=== PATIENT | male | born 1955 | race Caucasian/White ===

== ENCOUNTER 2021-04-05 12:00 | Outpatient (CLI) | payer OTHER, SELFPAY | END 2021-04-05 12:01 | disposition home or self-care (01) | LOC: SLEEP 04-06 15:29 | PROVIDERS: Family Provider Family Medicine; Visit Provider Family Medicine | DX: R20.9 Unspecified disturbances of skin sensation (principal); M65.30 Trigger finger, unspecified finger; R53.83 Other fatigue; R40.0 Somnolence; R60.9 Edema, unspecified; R05 Cough | CPT/HCPCS: G0399 ==

== ENCOUNTER 2021-07-26 11:14 | Emergency (ER) | payer OTHER, SELFPAY ==
[2021-07-26 11:27] VITALS: BP 142/92; PULSE 75; RESP 18; TEMP 37.1; O2SAT 94; BMI 38.5
[2021-07-26 13:05] LABS: Basophils # 0.1 10^3/uL (0.0-0.1); Basophils % 0.7 %; Eosinophils # 0.1 10^3/uL (0.0-0.8); Eosinophils % 1.6 %; Hematocrit 53.7 % (42.0-52.0); Hemoglobin 17.3 g/dL (11.7-16.6); Lymphocytes % 21.8 %; Mean Corpuscular HGB Conc 32.2 g/dL (30.0-36.0); Mean Corpuscular Hemoglobin 29.9 pg (28.0-34.0); Mean Corpuscular Volume 92.9 fl (80-94); Mean Platelet Volume 11.1 fL (7.4-10.4); Monocytes # 0.8 10^3/uL (0.2-0.9); Monocytes % 8.8 %; Neutrophils % 66.8 %; Nucleated Red Blood Cells % 0 %; Platelet Count 183 10^3/cmm (130-400); Red Blood Count 5.78 10^6/uL (4.1-5.3); Red Cell Distribution Width 13.3 % (12.1-15.1)
[2021-07-26 13:24] LABS: Blood Urea Nitrogen 14 mg/dL (8-23); Calcium 8.1 mg/dL (8.5-10.5); Carbon Dioxide 24 mmol/L (22-29); Chloride 102 mmol/L (98-107); Creatinine Clr Calc Pharmacy 120.0824; Glomerular Filtration Rate 84.7 mL/min (90-130); Glucose 91 mg/dL (65-115); Osmolality Calculated 282 mOsm/kg (285-295); Sodium 136 mmol/L (136-145)
[2021-07-26 13:25] LABS: Anion Gap 14.4 (5-19); Potassium 4.4 mmol/L (3.5-5.1)
[2021-07-26 13:31] LABS: INR 0.98 (0.8-1.2)
--- NOTE | 2021-07-26 13:57 | ED_ITS ---
Documented by User: ROSALIO Martinez 07/26/21 15:52 HPI - General Adult General: Chief complaint: General Medical Stated complaint: Rectal Bleeding Time Seen by Provider: 07/26/21 17:40 History of Present Illness: HPI narrative: Patient said he had rectal bleeding that started last night. Notes when he wiped. Has had some dripping from his rectum this morning and blood on toilet paper. Patient denies any history of abdominal problems or any history of hemorrhoids. MD complaint: Rectal bleeding Onset (ago): hour(s) Associated symptoms: Reports no associated symptoms; Deny chest pain, headache(s), rash or vomiting Review of Systems Const: Denies: fever(s), chills or body aches Eyes: Denies: eye discharge ENMT: Denies: throat pain, oral sores or nasal congestion Card: Denies: chest pain or dyspnea on exertion Resp: Denies: wheezing or stridor GI: Reports: other (Rectal bleeding); Denies: vomiting, diarrhea, rectal pain, rectal swelling or rectal itching : Denies: difficulty urinating Musc: Denies: extremity pain Skin/Breast: Denies: rash Neuro: Denies: headache(s) Psych: Denies: anxiety or depression Jeffrey/Lymph: Denies: easy bruising PFSH ED PFSH: Medical History (Updated 07/27/21 @ 07:02 by Vu Lindquist DO) No significant past medical history Surgical History (Updated 07/27/21 @ 07:02 by Vu Lindquist DO) No history of previous surgery Social History (Updated 07/27/21 @ 07:03 by Vu Lindquist DO) Smoking and tobacco status: never smoked Alcohol intake: never Physical Exam Const: COMMON NORMALS: no acute distress GENERAL APPEARANCE: cooperative Resp: COMMON NORMALS: normal respiratory effort Psych: COMMON NORMALS: mental status grossly normal Course Vital Signs: Vital signs: Vital Signs Temperature 98.7 F 07/26/21 11:27 Pulse Rate 71 07/26/21 18:24 Respiratory Rate 17 07/26/21 18:24 Blood Pressure 142/92 07/26/21 11:27 Pulse Oximetry 95 07/26/21 18:24 MDM - General Adult MDM Narrative: Medical decision making narrative: Brief history and physical exam was performed as part of the triage process. Due to current ED wait time patient will be placed in waiting room until a room becomes available. Explained to patient he/she will be seen in order of severity. Patient is currently safe to wait in the waiting room until we can get them placed. Patient informed that if condition worsens at any time to please let the front desk coordinator know. I have visited with the patient hourly over the last 3 hours Lab Data: Labs: Lab Results 07/26/21 07/26/21 07/26/21 12:56 12:56 12:56 WBC 9.0 10^3/uL 10^3/ uL (4.0-10.0) RBC 5.78 10^6/uL H 10 ^6/uL (4.1-5.3) Hgb 17.3 g/dL H g/dL (11.7-16.6) Hct 53.7 % H % (42.0-52.0) MCV 92.9 fl fl (80-94) MCH 29.9 pg pg (28.0-34.0) MCHC 32.2 g/dL g/dL (30.0-36.0) RDW 13.3 % % (12.1-15.1) Plt Count 183 10^3/cmm 10^3 /cmm (130-400) MPV 11.1 fL H fL (7.4-10.4) Neut % (Auto) 66.8 % % Lymph % (Auto) 21.8 % % [place] % (Auto) 8.8 % % Eos % (Auto) 1.6 % % Baso % (Auto) 0.7 % % Neut # (Auto) 6.00 10^3/uL 10^3 /uL (1.8-7.7) Lymph # (Auto) 2.0 10^3/uL 10^3/ uL (0.8-4.8) [place] # (Auto) 0.8 10^3/uL 10^3/ uL (0.2-0.9) Eos # (Auto) 0.1 10^3/uL 10^3/ uL (0.0-0.8) Baso # (Auto) 0.1 10^3/uL 10^3/ uL (0.0-0.1) Nucleated RBC % (a uto) 0 % % Nucleated RBCs # 0.0 /100WBC /100W BC PT 13.30 SECONDS SEC ONDS (12.1-14.9) INR 0.98 (0.8-1.2) Sodium 136 mmol/L mmol/L (136-145) Potassium 4.4 mmol/L mmol/L (3.5-5.1) Chloride 102 mmol/L mmol/L (98-107) Carbon Dioxide 24 mmol/L mmol/L (22-29) Anion Gap 14.4 (5-19) BUN 14 mg/dL mg/dL (8-23) Creatinine 0.9 mg/dL mg/dL (0.7-1.2) GFR Calculation 84.7 mL/min L mL/ min (90-130) Glucose 91 mg/dL mg/dL (65-115) Calculated Osmolal ity 282 mOsm/kg L mOs m/kg (285-295) Calcium 8.1 mg/dL L mg/dL (8.5-10.5) Discharge Plan Discharge Patient Disposition: Home Clinical Impression: Bleeding hemorrhoids Condition: Stable Prescriptions: New Anusol-HC 2.5 % cream with perineal applicator 1 applic OK QID 21 Days RF: 0 Discharge Orders: Discharge ED (Routine); Ordered 07/26/21 Ordered By: Vu Lindquist Discharge Diet: Usual diet Discharge Activity: Resume usual activity Patient Instructions: Opioid Safety Activity Restrictions/Additional Instructions: Follow-up with hemoglobin with your primary care doctor in the next 2 days. If you have further problems return to the emergency room. canteen manager will call to make arrangements for you to see a general surgeon to have a colonoscopy done. Coding Level of Care Code ED [employer] Director for Chg Fwd Exam Expanded Problem Focused Documented by User: Vu Lindquist DO 07/27/21 07:04 HPI - General Adult General: Chief complaint: General Medical Stated complaint: Rectal Bleeding Time Seen by Provider: 07/26/21 17:40 History of Present Illness: HPI narrative: 66-year-old male presents emergency room with complaint of bright red blood per rectum. Single episode last night large amount of red blood is not had any further episodes. He is not had any straining to defecate. He has had never had problems with hemorrhoids in the past. Associated symptoms: Deny chest pain, dyspnea, malaise, nausea, rash or vomiting Review of Systems Const: Denies: fever(s), chills, body aches, change in appetite, fatigue or malaise Card: Denies: chest pain, edema, dyspnea on exertion or orthopnea Resp: Denies: dyspnea, productive cough or non-productive cough GI: Reports: hematochezia; Denies: abdominal pain, nausea, vomiting, hematemesis, coffee ground emesis, diarrhea, constipation, bloating, rectal pain or melena : Denies: flank pain, dysuria, urinary frequency or urinary urgency Skin/Breast: Denies: rash or pruritus PFSH ED PFSH: Medical History (Updated 07/27/21 @ 07:02 by Vu Lindquist DO) No significant past medical history Surgical History (Updated 07/27/21 @ 07:02 by Vu Lindquist DO) No history of previous surgery Social History (Updated 07/27/21 @ 07:03 by Vu Lindquist DO) Smoking and tobacco status: never smoked Alcohol intake: never Physical Exam Const: COMMON NORMALS: no acute distress GENERAL APPEARANCE: cooperative and comfortable ORIENTATION/CONSCIOUSNESS: Yes awake, Yes oriented to person, Yes oriented to place and Yes oriented to time HENMT: COMMON NORMALS: normocephalic, atraumatic and hearing grossly normal bilaterally HEAD & SCALP: normocephalic and atraumatic Neck/C-Spine: COMMON NORMALS: no JVD Resp: COMMON NORMALS: normal respiratory effort, No retractions, No use of accessory muscles and clear to auscultation bilaterally AUSCULTATION: clear to auscultation bilaterally Cardio: COMMON NORMALS: no JVD, regular rate, regular rhythm and No murmurs present (Cardio) RATE: regular rate RHYTHM: regular rhythm GI: COMMON NORMALS: Soft to palpation and No hepatosplenomegaly present AUSCULTATION: Yes normoactive bowel sounds PALPATION: Yes Soft to palpation, No Tenderness to palpation present (GI), No Guarding due to palpation present (GI) and Yes No hepatosplenomegaly present OTHER: Rectal exam bleeding external hemorrhoid at the 6 o'clock position. No active bleeding nonthrombosed hemorrhoids Extremity: COMMON NORMALS: normal to inspection, capillary refill normal, no clubbing, cyanosis or edema, no calf tenderness and no pedal edema Neuro: SENSORIUM/ORIENTATION: Yes oriented to person, Yes oriented to place and Yes oriented to time Skin: COMMON NORMALS: no rashes or lesions noted GENERAL SKIN EXAM: no rashes or lesions noted Course Vital Signs: Vital signs: Vital Signs Temperature 98.7 F 07/26/21 11:27 Pulse Rate 71 07/26/21 18:24 Respiratory Rate 17 07/26/21 18:24 Blood Pressure 142/92 07/26/21 11:27 Pulse Oximetry 95 07/26/21 18:24 MDM - General Adult MDM Narrative: Medical decision making narrative: Bleeding hemorrhoids. Not have active bleeding at this time the visualized nonthrombosed. Will discharge home with topical treatment referral to general surgery for further evaluation including possible colonoscopy since patient not had one previously. Lab Data: Labs: Lab Results 07/26/21 07/26/21 07/26/21 12:56 12:56 12:56 WBC 9.0 10^3/uL 10^3/ uL (4.0-10.0) RBC 5.78 10^6/uL H 10 ^6/uL (4.1-5.3) Hgb 17.3 g/dL H g/dL (11.7-16.6) Hct 53.7 % H % (42.0-52.0) MCV 92.9 fl fl (80-94) MCH 29.9 pg pg (28.0-34.0) MCHC 32.2 g/dL g/dL (30.0-36.0) RDW 13.3 % % (12.1-15.1) Plt Count 183 10^3/cmm 10^3 /cmm (130-400) MPV 11.1 fL H fL (7.4-10.4) Neut % (Auto) 66.8 % % Lymph % (Auto) 21.8 % % [place] % (Auto) 8.8 % % Eos % (Auto) 1.6 % % Baso % (Auto) 0.7 % % Neut # (Auto) 6.00 10^3/uL 10^3 /uL (1.8-7.7) Lymph # (Auto) 2.0 10^3/uL 10^3/ uL (0.8-4.8) [place] # (Auto) 0.8 10^3/uL 10^3/ uL (0.2-0.9) Eos # (Auto) 0.1 10^3/uL 10^3/ uL (0.0-0.8) Baso # (Auto) 0.1 10^3/uL 10^3/ uL (0.0-0.1) Nucleated RBC % (a uto) 0 % % Nucleated RBCs # 0.0 /100WBC /100W BC PT 13.30 SECONDS SEC ONDS (12.1-14.9) INR 0.98 (0.8-1.2) Sodium 136 mmol/L mmol/L (136-145) Potassium 4.4 mmol/L mmol/L (3.5-5.1) Chloride 102 mmol/L mmol/L (98-107) Carbon Dioxide 24 mmol/L mmol/L (22-29) Anion Gap 14.4 (5-19) BUN 14 mg/dL mg/dL (8-23) Creatinine 0.9 mg/dL mg/dL (0.7-1.2) GFR Calculation 84.7 mL/min L mL/ min (90-130) Glucose 91 mg/dL mg/dL (65-115) Calculated Osmolal ity 282 mOsm/kg L mOs m/kg (285-295) Calcium 8.1 mg/dL L mg/dL (8.5-10.5) Discharge Plan Discharge Patient Disposition: Home Clinical Impression: Bleeding hemorrhoids Condition: Stable Prescriptions: New Anusol-HC 2.5 % cream with perineal applicator 1 applic OK QID 21 Days RF: 0 Discharge Orders: Discharge ED (Routine); Ordered 07/26/21 Ordered By: Vu Lindquist Discharge Diet: Usual diet Discharge Activity: Resume usual activity Patient Instructions: Opioid Safety Activity Restrictions/Additional Instructions: Follow-up with hemoglobin with your primary care doctor in the next 2 days. If you have further problems return to the emergency room. canteen manager will call to make arrangements for you to see a general surgeon to have a colonoscopy done. Coding Level of Care Code ED [employer] Director for Chg Fwd Exam Expanded Problem Focused
[2021-07-26 18:24] VITALS: PULSE 71; RESP 17; O2SAT 95
--- NOTE | 2021-07-27 10:58 | DCPLANNER ---
sports team manager had message to schedule a follow up appointment for patient with general surgery. sports team manager emailed patients information to Erendira at [facility] General Surgery / ENT clinic. Patients information will be printed and reviewed. Clinic will call patient with appointment information.
--- NOTE | 2021-08-01 16:03 | DCPLANNER ---
Patient has a follow up appointment scheduled for Saturday, August 14, 2021 at 10:[address] Flores at [facility] General Surgery. Clinic will call patient with appointment information.
--- NOTE | 2021-08-22 08:24 | DCPLANNER ---
Patient had a follow up appointment scheduled for 08.14.[address] Flores at [facility] General Surgery - patient did attend appointment.
== END 2021-07-26 18:21 | disposition home or self-care (01) ==
PROVIDERS: Nurse Practitioner Family; Emergency Provider Family Medicine
DX: K64.9 Unspecified hemorrhoids (principal)
CPT/HCPCS: 80048; 85025; 85610; 99282

== ENCOUNTER 2022-07-04 12:50 | Outpatient (CLI) | payer OTHER, SELFPAY ==
--- NOTE | 2022-07-04 13:06 | XRR_ITS ---
PROCEDURE INFORMATION: Exam: XR Chest Exam date and time: 07/04/2022 1:12 PM Age: 67 years old Clinical indication: Patient HX: Persistant cough x 8 wks. PT stated that he did not have this cough until after the flu shot; Additional info: Persistent cough TECHNIQUE: Imaging protocol: Radiologic exam of the chest. Views: 2 views. COMPARISON: CT chest abd pel w con* 04/09/2017 9:50 PM FINDINGS: Lungs: Unremarkable. No consolidation. Pleural spaces: Unremarkable. No pleural effusion. No pneumothorax. Heart/Mediastinum: Unremarkable. No cardiomegaly. Bones/joints: Unremarkable. XR/XR chest 2V* [id number] IMPRESSION: No acute findings.
== END 2022-07-04 12:51 | disposition home or self-care (01) ==
LOC: RAD 12:55
PROVIDERS: PCP Family Medicine; Visit Provider Nurse Practitioner Family
DX: R05.3 Chronic cough (principal)
CPT/HCPCS: 71046

== ENCOUNTER 2022-07-24 14:56 | Outpatient (CLI) | payer OTHER, SELFPAY ==
--- NOTE | 2022-07-24 15:13 | XR_ITS ---
WS: [id number] Exam: XR chest 2V* [id number] Date/Time of Exam: 07/24/2022 3:13 PM Reason For Exam: prolonged cough Comparison 07/04/2022. The lungs are clear and fully expanded. Normal cardiomediastinal silhouette. Mild spondylosis of the thoracic spine. XR/XR chest 2V* [id number] IMPRESSION: 1. No acute cardiopulmonary finding. No change.
== END 2022-07-24 14:57 | disposition home or self-care (01) ==
LOC: RAD 14:57
PROVIDERS: PCP Family Medicine; Visit Provider Family Medicine
DX: J15.9 Unspecified bacterial pneumonia (principal); R05.9 Cough, unspecified
CPT/HCPCS: 71046; 80053; 85025; 86140

== ENCOUNTER 2022-10-02 09:07 | Outpatient (CLI) | payer OTHER, SELFPAY ==
--- NOTE | 2022-10-02 09:30 | CT_ITS ---
WS: [id number] CT CHEST WITHOUT INTRAVENOUS CONTRAST HISTORY: cough for 3 months TECHNIQUE: Contiguous 5 mm axial imaging performed on the thorax. Coronal and sagittal reformats are submitted. All CT scans at [facility] use at least one of these dose optimization techniques: automated exposure control; mA and/or kV adjustment per patient size (includes targeted exams where dose is matched to clinical indication); or iterative reconstruction. CONTRAST: None DLP: 707.01 mGy.cm COMPARISON: 04/09/2017 Lungs and central airway: Mild pulmonary hyperexpansion. No pulmonary mass, nodule or pneumonia. Lung s are clear. Pleura: Normal. No pleural effusion. Heart and pericardium: Normal size heart with no pericardial effusion. Mediastinum and mo: No mediastinum or hilar adenopathy. Vessels: Normal size aortic and pulmonary artery. No coronary artery calcifications. Chest wall and lower neck: No soft tissue masses. Upper abdomen: Numerous stones within the gallbladder. No evidence for acute cholecystitis. No adrena l mass. Osseous structures: Moderate degenerative osteoarthritic changes at the glenohumeral joints. CT/CT chest con [id number] IMPRESSION: 1. No pneumonia, pulmonary mass or nodule. 2. No adenopathy. 3. Normal size heart. 4. Cholelithiasis. Numerous stones within the gallbladder lumen. Stones have i ncreased in size and number since 2017. Consider surgical consultation.
== END 2022-10-02 09:08 | disposition home or self-care (01) ==
PROVIDERS: PCP Family Medicine; Visit Provider Clinical Nurse Specialist Adult Health
DX: R05.2 Subacute cough (principal)
CPT/HCPCS: 71250

== ENCOUNTER → 2022-10-05 12:03 | Outpatient (BNVA) | payer OTHER, MEDICARE, SELFPAY | PROVIDERS: PCP Family Medicine; Visit Provider Family Medicine | DX: Z12.5 Encounter for screening for malignant neoplasm of prostate (principal); Z80.42 Family history of malignant neoplasm of prostate | CPT/HCPCS: 84153 ==

== ENCOUNTER → 2023-11-22 09:01 | Outpatient (BNVA) | payer MEDICARE, SELFPAY | PROVIDERS: PCP Family Medicine; Visit Provider Family Medicine | DX: I87.2 Venous insufficiency (chronic) (peripheral) (principal); K80.20 Calculus of gallbladder without cholecystitis without obstruction; B35.3 Tinea pedis; R60.9 Edema, unspecified; Z00.00 Encounter for general adult medical examination without abnormal findings; Z13.6 Encounter for screening for cardiovascular disorders; G62.9 Polyneuropathy, unspecified; N52.9 Male erectile dysfunction, unspecified | CPT/HCPCS: 80053; 80061; 82607; 83036; 85025 ==

== ENCOUNTER 2024-05-12 15:12 | Outpatient (CLI) | payer MEDICARE, SELFPAY ==
--- NOTE | 2024-05-12 15:16 | XR_ITS ---
WS: [id number] XR knee LT 3V* [id number] REASON FOR EXAM: M25.569 - Pain in unspecified knee FINDINGS: No fracture or focal bone lesion. Severe narrowing of the medial knee joint space with moderate subchondral sclerosis and large margina l osteophytosis. Mild medial shift of the femur. Mild narrowing of the patellofemoral joint space wit h moderate subchondral sclerosis and mild marginal osteophytosis. Moderate opposing osteophytes of th e femoral condyles. XR/XR knee LT 3V* [id number] IMPRESSION: Moderately severe osteoarthritis of the left knee with near [id number] articu lation in the medial knee joint compartment.
--- NOTE | 2024-05-12 15:16 | XR_ITS ---
WS: [id number] [place] [id number] REASON FOR EXAM: M25.569 - Pain in unspecified knee FINDINGS: RIGHT KNEE: No fracture or focal bone lesion. Moderate narrowing of the medial knee joint space with moderate subchondral sclerosis and mild margin al osteophytosis. Mild medial shift of the femur. Lateral joint space is intact and relatively well preserved. XR/[place] [id number] IMPRESSION: Moderate osteoarthritis of the right knee. LEFT KNEE: No fracture or focal bone lesion. Severe narrowing of the medial knee joint spa ce which with weightbearing appears to be [id number] with moderate medial curly ft of the patella and significant subchondral sclerosis and cystic change. The lateral knee joint space is intact with minimal subchondral sclerosis and m ild marginal osteophytosis. IMPRESSION: Severe osteoarthritis of the left knee as above.
== END 2024-05-12 15:13 | disposition home or self-care (01) ==
LOC: RAD 15:13
PROVIDERS: PCP Family Medicine; Visit Provider Family Medicine
DX: M17.12 Unilateral primary osteoarthritis, left knee (principal); M25.762 Osteophyte, left knee; R35.0 Frequency of micturition
CPT/HCPCS: 73562; 73565; 81000

== ENCOUNTER → 2024-06-17 08:27 | Outpatient (BNVA) | payer MEDICARE, SELFPAY | PROVIDERS: PCP Family Medicine; Visit Provider Specialist | DX: M17.0 Bilateral primary osteoarthritis of knee (principal) | CPT/HCPCS: 73560; 73565; 99204 ==

== ENCOUNTER 2024-06-25 09:36 | Outpatient (RCR) | payer MEDICARE, SELFPAY | END 2024-07-04 23:59 | disposition home or self-care (01) | LOC: SPT 09:36 | PROVIDERS: Visit Provider Specialist | DX: M17.0 Bilateral primary osteoarthritis of knee (principal) | CPT/HCPCS: 97161 ==

== ENCOUNTER 2024-07-05 06:00 | Outpatient (RCR) | payer MEDICARE, SELFPAY | END 2024-08-04 23:59 | disposition home or self-care (01) | LOC: SPT 06:00 | PROVIDERS: Visit Provider Specialist | DX: M17.0 Bilateral primary osteoarthritis of knee (principal) | CPT/HCPCS: 97110 ==

== ENCOUNTER → 2024-10-12 13:19 | Outpatient (BNVA) | payer MEDICARE, SELFPAY | PROVIDERS: Visit Provider Specialist | DX: M17.0 Bilateral primary osteoarthritis of knee (principal) | CPT/HCPCS: 99213 ==

== ENCOUNTER → 2024-10-15 09:20 | Outpatient (BNVA) | payer MEDICARE, SELFPAY | PROVIDERS: PCP Family Medicine; Visit Provider Family Medicine | DX: I87.2 Venous insufficiency (chronic) (peripheral) (principal); E66.9 Obesity, unspecified; M19.90 Unspecified osteoarthritis, unspecified site; M25.569 Pain in unspecified knee; K80.20 Calculus of gallbladder without cholecystitis without obstruction; E03.9 Hypothyroidism, unspecified; E55.9 Vitamin D deficiency, unspecified | CPT/HCPCS: 80053; 80061; 82306; 83036; 83735; 84439; 84443; 84481; 85025; 85651; 86140 ==

== ENCOUNTER 2024-11-05 13:23 | Outpatient (RCR) | payer MEDICARE, SELFPAY | END 2024-12-02 23:59 | disposition home or self-care (01) | LOC: SPT 13:23 | PROVIDERS: Visit Provider Specialist | DX: M17.0 Bilateral primary osteoarthritis of knee (principal) | CPT/HCPCS: 97110; 97162 ==

== ENCOUNTER 2024-12-03 06:00 | Outpatient (RCR) | payer MEDICARE, SELFPAY | END 2025-01-02 23:59 | disposition home or self-care (01) | LOC: SPT 06:00 | PROVIDERS: Visit Provider Specialist | DX: M17.0 Bilateral primary osteoarthritis of knee (principal) | CPT/HCPCS: 97110 ==

== ENCOUNTER → 2025-01-13 09:37 | Outpatient (BNVA) | payer MEDICARE, SELFPAY | PROVIDERS: PCP Family Medicine; Visit Provider Specialist | DX: M17.0 Bilateral primary osteoarthritis of knee (principal) | CPT/HCPCS: 20610; 73560; 73565; 99213; J1100; J2795; J3301; J9999 ==

== ENCOUNTER → 2025-01-18 10:27 | Outpatient (BNVA) | payer MEDICARE, SELFPAY | PROVIDERS: PCP Family Medicine; Visit Provider Family Medicine | DX: E55.9 Vitamin D deficiency, unspecified (principal); E50.9 Vitamin A deficiency, unspecified; E03.9 Hypothyroidism, unspecified; E66.9 Obesity, unspecified; M19.90 Unspecified osteoarthritis, unspecified site; M17.0 Bilateral primary osteoarthritis of knee; G47.00 Insomnia, unspecified | CPT/HCPCS: 80053; 82306; 86140 ==

== ENCOUNTER → 2025-04-23 09:12 | Outpatient (BNVA) | payer MEDICARE, SELFPAY | PROVIDERS: PCP Family Medicine; Visit Provider Specialist | DX: M17.0 Bilateral primary osteoarthritis of knee (principal) | CPT/HCPCS: 20610; J7318 ==

== ENCOUNTER → 2025-05-18 10:02 | Outpatient (BNVA) | payer MEDICARE, SELFPAY | PROVIDERS: PCP Family Medicine; Visit Provider Family Medicine | DX: N52.9 Male erectile dysfunction, unspecified (principal); E66.9 Obesity, unspecified; E55.9 Vitamin D deficiency, unspecified; M17.0 Bilateral primary osteoarthritis of knee; M25.569 Pain in unspecified knee; R73.03 Prediabetes | CPT/HCPCS: 80053; 80061; 82306; 83036 ==